=== PATIENT | female | born 1960 | race Caucasian/White ===

== ENCOUNTER 2023-11-10 08:29 | Emergency (ER) | payer OTHER ==
[~2023-11-10] VITALS: Ht 177.8 cm; Wt 61.2 kg
[2023-11-10 14:39] VITALS: BP 123/77; TEMP 98.4; O2SAT 100
== END 2023-11-10 14:40 | disposition home or self-care (01) ==
LOC: ER 08:35
DX: S93.401A Sprain of unspecified ligament of right ankle, initial encounter (principal); I95.9 Hypotension, unspecified; M19.90 Unspecified osteoarthritis, unspecified site; Z60.2 Problems related to living alone; X58.XXXA Exposure to other specified factors, initial encounter; Y93.89 Activity, other specified; Y92.89 Other specified places as the place of occurrence of the external cause; Y99.8 Other external cause status
CPT/HCPCS: 73610-TC; 73630-TC; 93971-TC